=== PATIENT | female | born 2005 | race Caucasian/White ===

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

== ENCOUNTER 2024-03-16 03:10 | Emergency (ER) | payer BC ==
[2024-03-16] MEDS: Levofloxacin 500 MG Tab PO ONE (03:49)
[2024-03-16] MEDS: Phenazopyridine 95 MG Tab PO ONE (03:50)
[2024-03-16 03:55] LABS: APPEARANCE,URINE CLOUDY (Clear); BILIRUBIN,URINE 1+ (Negative); COLOR,URINE YELLOW (Yellow); GLUCOSE,URINE NEGATIVE (Negative); KETONES,URINE NEGATIVE (Negative); LEUKOCYTE ESTERASE,URINE 1+ (Negative); NITRITE,URINE NEGATIVE (Negative); OCCULT BLOOD,URINE 3+ (Negative); PH,URINE 5.5 (5.0-8.0); PROTEIN,URINE 3+ (Negative); UROBILINOGEN,URINE 0.2 (0.2-1.0)
[2024-03-16 03:57] VITALS: BP 124/86; PULSE 88
[2024-03-16 03:58] LABS: BACTERIA,URINE FEW /hpf (FEW); EPITHELIAL CELLS,URINE 0-5 /hpf (0-5); MUCUS,URINE NOT SEEN /hpf (FEW); WBC,URINE 50-75 /hpf (0-5)
== END 2024-03-16 03:50 | disposition home or self-care (01) ==
LOC: JD.ED 03:10
DX: N39.0 Urinary tract infection, site not specified (principal); Z90.89 Acquired absence of other organs; Z79.2 Long term (current) use of antibiotics
CPT/HCPCS: 81001; 99283; A9270